=== PATIENT | female | born 1990 | race Two or more races ===

== ENCOUNTER 2023-03-23 19:54 | Emergency (ER) | payer OTHER ==
[~2023-03-23] VITALS: Ht 167.6 cm; Wt 54.4 kg
[2023-03-23 20:47] VITALS: TEMP 98.4
[2023-03-23 21:43] VITALS: BP 131/81; O2SAT 99
== END 2023-03-23 22:04 ==
LOC: ER 19:57
DX: S63.592A Other specified sprain of left wrist, initial encounter (principal); I10 Essential (primary) hypertension; I48.91 Unspecified atrial fibrillation; Y04.0XXA Assault by unarmed brawl or fight, initial encounter; Y93.89 Activity, other specified; Y92.89 Other specified places as the place of occurrence of the external cause; Y99.8 Other external cause status
CPT/HCPCS: 73110